=== PATIENT | male | born 1965 ===

== ENCOUNTER 2024-09-17 15:25 | Emergency (ER) | payer OTHER ==
[2024-09-17] MEDS ORDERED: Fluorescein Opthalmic Strip ONE (16:32)
[2024-09-17] MEDS ORDERED: Tetracaine 0.5% PF 4 ML BOT ONE (16:32)
[2024-09-17] MEDS ORDERED: Boostrix 0.5 ML (Tdap) VIAL (>/=7 yrs of age) ONE (16:54)
== END 2024-09-17 19:29 | disposition short-term general hospital (02) ==
LOC: MADERS 15:25
DX: S01.112A Laceration without foreign body of left eyelid and periocular area, initial encounter (principal); F17.210 Nicotine dependence, cigarettes, uncomplicated; Z23 Encounter for immunization; W27.1XXA Contact with garden tool, initial encounter
CPT/HCPCS: 70480; 90471; 90715